=== PATIENT | male | born 1970 | race Caucasian/White ===

== ENCOUNTER 2019-04-10 13:02 | Emergency (ER) | payer SELFPAY ==
[2019-04-10] MEDS ORDERED: Cyclobenzaprine 10 MG TAB ONE (14:09)
[2019-04-10] MEDS ORDERED: Ketorolac Tromethamine 60 MG/2 ML VIAL ONE (14:10)
== END 2019-04-10 14:28 | disposition home or self-care (01) ==
LOC: ERS 13:02
DX: M54.42 Lumbago with sciatica, left side (principal); I10 Essential (primary) hypertension; F17.210 Nicotine dependence, cigarettes, uncomplicated
CPT/HCPCS: 96372; 99283; J1885

== ENCOUNTER 2021-10-11 17:46 | Emergency (ER) | payer SELFPAY ==
[2021-10-11] MEDS ORDERED: Acetaminophen 500 MG TAB ONE (19:25)
== END 2021-10-11 20:14 | disposition home or self-care (01) ==
LOC: ERS 17:46
DX: U07.1 COVID-19 (principal); I10 Essential (primary) hypertension; E03.9 Hypothyroidism, unspecified; F17.210 Nicotine dependence, cigarettes, uncomplicated
CPT/HCPCS: 71045; 87804; U0003; U0005